=== PATIENT | female | born 1955 | race Caucasian/White ===

== ENCOUNTER 2019-12-08 09:44 | Outpatient (CLI) | payer OTHER ==
--- NOTE | 2019-12-08 10:32 | MMO ---
Bilateral MAMMO Bilat Screen [facility]. CLINICAL HISTORY: Patient is 64 years old and is seen for screening. The patient has the following family history of breast cancer: sister, 40'S, malignant (generic). The patient has no personal history of cancer. VIEWS: The views performed were: bilateral craniocaudal with tomosynthesis and bilateral mediolateral oblique with tomosynthesis. FILMS COMPARED: The present examination has been compared to prior imaging studies performed at [facility] on 11/09/2008, 05/08/2009 and 04/24/2011. This study has been interpreted with the assistance of computer-aided detection. MAMMOGRAM FINDINGS: There are scattered fibroglandular densities. Finding 1: There are stable benign appearing calcifications seen in both breasts. Finding 2: There is a stable oval mass measuring 5 x 10 mm with circumscribed margins seen in the lower-inner region of the left breast. There are no suspicious masses, suspicious calcifications, or new areas of architectural distortion. IMPRESSION: THERE IS NO MAMMOGRAPHIC EVIDENCE OF MALIGNANCY. A ROUTINE FOLLOW-UP MAMMOGRAM IN 1 YEAR IS RECOMMENDED. THE RESULTS OF THIS EXAM WERE SENT TO THE PATIENT. ACR BI-RADS Category 2 - Benign finding MAMMOGRAPHY NOTE: 1. A negative mammogram report should not delay a biopsy if a dominant of clinically suspicious mass is present. 2. Approximately 10% to 15% of breast cancers are not detected by mammography. 3. Adenosis and dense breasts may obscure an underlying neoplasm. Reported by: THONY FREEMAN MD Electonically Signed: [id number]
== END 2019-12-08 09:45 | disposition home or self-care (01) ==
LOC: BICMAMMO 09:44
PROVIDERS: ATTEND Family Medicine
DX: Z12.31 Encounter for screening mammogram for malignant neoplasm of breast (principal); Z80.3 Family history of malignant neoplasm of breast
CPT/HCPCS: 77063; 77067

== ENCOUNTER 2024-12-12 10:21 | Outpatient (CLI) | payer MEDICARE, OTHER | END 2024-12-12 10:22 | disposition home or self-care (01) | LOC: BICMAMMO 10:21 | PROVIDERS: ATTEND Emergency Medicine | DX: Z78.0 Asymptomatic menopausal state (principal) | CPT/HCPCS: 77080 ==

== ENCOUNTER 2025-01-11 13:35 | Outpatient (CLI) | payer MEDICARE, OTHER | END 2025-01-11 13:36 | disposition home or self-care (01) | LOC: BICMAMMO 13:35 | PROVIDERS: ATTEND Emergency Medicine | DX: Z12.31 Encounter for screening mammogram for malignant neoplasm of breast (principal); Z80.3 Family history of malignant neoplasm of breast | CPT/HCPCS: 77063; 77067 ==